=== PATIENT | female | born 1945 | race Caucasian/White ===

== ENCOUNTER → 2019-12-23 19:01 | Outpatient (BNVA) | payer MEDICARE, BC, SELFPAY | PROVIDERS: Family Provider Nurse Practitioner; PCP Nurse Practitioner; Visit Provider Nurse Practitioner Family | DX: Z20.828 Contact with and (suspected) exposure to other viral communicable diseases (principal) | CPT/HCPCS: 87635 ==

== ENCOUNTER 2021-06-22 14:35 | Outpatient (CLI) | payer MEDICARE, BC, SELFPAY ==
--- NOTE | 2021-06-22 15:00 | US_ITS ---
WS: [id number] Complete ABDOMINAL ULTRASOUND HISTORY: R10.11 - Right upper quadrant pain COMPARISON: None available. Liver: 15.4 cm in length. Coarsened echotexture throughout the liver from hepatic steatosis. No mass identified. No bile duct dilatation. Portal Vein: Normal hepatopetal flow with monophasic waveform. Gallbladder: Well distended gallbladder. There is a stone within the neck of the gallbladder. No humera cent cholecystic fluid. Suspect there may be additional stones in a redundant gallbladder. The stones measure at least 1.6 cm in diameter. Gallbladder wall thickness: 0.2 cm. Pancreas: Normal size and echogenicity. CBD: 0.5 cm. Right kidney: 11.3 cm x 4.4 cm x 5.8 cm. No mass, cortical thickening or hydronephrosis. Increased e chogenicity throughout the kidney. Left kidney: 11.2 cm x 4.3 cm x 6.0 cm. No mass, cortical thickening or hydronephrosis. Increased ec hogenicity throughout the kidney. Spleen: Normal size and echogenicity. Abdominal aorta and IVC are within normal limits. No ascites. US/US abdomen complete* [id number] IMPRESSION: 1. Several large stones within an elongated tortuous gallbladder neck. Patient is at risk for stone entrapment resulting in acute cholecystitis. Recommend shell rgical evaluation for cholecystectomy. At this time there is no acute cholecyst itis. 2. Mild bilateral chronic renal medical disease. 3. Hepatic steatosis. 4. No bile duct dilatation.
== END 2021-06-22 14:36 | disposition home or self-care (01) ==
PROVIDERS: PCP Electrodiagnostic Medicine; Visit Provider Nurse Practitioner Family
DX: R10.11 Right upper quadrant pain (principal); K76.0 Fatty (change of) liver, not elsewhere classified; N18.9 Chronic kidney disease, unspecified
CPT/HCPCS: 76700

== ENCOUNTER → 2021-07-03 08:33 | Outpatient (BNVA) | payer MEDICARE, BC, SELFPAY | PROVIDERS: PCP Electrodiagnostic Medicine; Referring Provider Nurse Practitioner Family; Visit Provider Surgery | DX: K80.20 Calculus of gallbladder without cholecystitis without obstruction (principal); K21.9 Gastro-esophageal reflux disease without esophagitis | CPT/HCPCS: 99204 ==

== ENCOUNTER 2021-07-12 07:26 | Day surgery (SDC) | payer MEDICARE, BC, SELFPAY ==
[2021-07-10 14:21] VITALS: BMI 35.8
[2021-07-12] VITALS (25 sets, daily range): BP systolic 136–190; BP diastolic 70–101; PULSE 48–75; RESP 12–27; TEMP 36.1–36.9; O2SAT 87–99
--- NOTE | 2021-07-12 08:00 | W.PM.OPSFHP ---
Same Day Surgery H&P Indication for Procedure/HPI DATE OF PROCEDURE: July 12, 2021 CHIEF COMPLAINT/INDICATIONFOR SURGICAL PROCEDURE: EGD with lap doris PREOP DIAGNOSIS: cholelithiasis gerd PLANNED PROCEDURE: Operation Date: 07/12/21 08:50 Proposed Procedures p Laparoscopic Cholecystectomy [id number]/k80.20/k21.9(Not Applicable) - Mando Barakat MD s EGD(Not Applicable) - Mando Barakat MD Medications/Allergies* Home Medications Medication Instructions Recorded Confirmed Type aspirin 81 mg tablet,delayed 81 mg PO DAILY 12/23/19 07/10/21 History release fenofibrate nanocrystallized 145 145 mg PO DAILY 12/23/19 07/10/21 History mg tablet omeprazole 20 mg capsule,delayed 20 mg PO DAILY 12/23/19 07/10/21 History release cholecalciferol (vitamin D3) 25 25 mcg PO DAILY 06/20/21 07/10/21 History mcg (1,000 unit) capsule coenzyme Q10 100 mg capsule 100 mg PO DAILY 06/20/21 07/10/21 History (CoQ-10) dexamethasone 1 mg tablet 1 mg PO DAILY 07/03/21 07/10/21 History Allergies/Adverse Reactions Allergy/AdvReac Type Severity Reaction Status Date / Time sulfamethoxazole Allergy Intermediate rash Verified 07/10/21 14:10 [From Bactrim] trimethoprim [From Bactrim] Allergy Intermediate rash Verified 07/10/21 14:10 Penicillins Allergy knots Verified 07/10/21 14:10 Pertinent History/Comorbid Conditions* Medical History (Updated 07/03/21 @ 09:05 by Mando Barakat MD) Cholelithiases GERD (gastroesophageal reflux disease) History of breast cancer Hyperlipidemia Polymyalgia rheumatica Surgical History (Updated 07/03/21 @ 09:05 by Mando Barakat MD) H/O esophagogastroduodenoscopy History of colonoscopy 2017 History of hysterectomy History of lumpectomy of right breast 2016 Social History Smoking and tobacco status: never smoked History of recent travel: No Agree to transfusion: Yes Pertinent Exam Findings alert, oriented x 3 and regular rate & rhythm Recommendations Surgery/Procedure today Coding Level of Care Code Acute Health Promotion Educator for Trang Alva
--- NOTE | 2021-07-12 08:16 | ECG_ITS ---
[facility] Test Date: 2021-07-12 Pat Name: Moriah Pineda Department: Room: Gender: Female [employer] Worker: : 1945 Requested By: Gregg Gomez Order Number: [id number] Mason MD: Cary Rodriguez M.D. Measurements Intervals Jackson Rate: 78 P: 34 VT: 165 QRS: 31 QRSD: 86 T: 32 QT: 371 QTc: 424 Interpretive Statements SINUS RHYTHM POSSIBLE ANTERIOR MYOCARDIAL INFARCTION , PROBABLY OLD [30 ms Q WAVE IN V3/V4, OR R < 0.2 mV IN V4] Compared to ECG 07/23/2016 19:05:50 Myocardial infarct finding now present Electronically Signed On 07-13-2021 6:12:51 CDT by Cary Rodriguez M.D. [id number]
[2021-07-12] MEDS: sodium chloride 0.9% 1,000 ML 30 ML IV (08:30)
[2021-07-12] MEDS: ciprofloxacin 400 MG/200 ML PREMIX 200 MG IV (09:21)
--- NOTE | 2021-07-12 09:51 | P.ANESASSM_ITS ---
Pre-Anesthetic Assessment Height/Weight: Height 1.57 m Weight 88.904 kg Temp Pulse Resp BP Pulse Ox 98.2 F 48 L 18 174/97 95 07/12/21 08:20 07/12/21 08:20 07/12/21 08:20 07/12/21 08:20 07/12/21 08:20 Preop Diagnosis: Cholelithiasis Operation Date: 07/12/21 08:50 Proposed Procedures p Laparoscopic Cholecystectomy [id number]/k80.20/k21.9(Not Applicable) - Mando Barakat MD s EGD(Not Applicable) - Mando Barakat MD Familial anesthetic complications: None Was Beta Jordon taken within 24 hours: N/A Was Clonidine taken within 24 hours: N/A Last intake: Intake Last Liquid Date 07/11/21 Last Liquid Time 19:00 Last Solid Date 07/11/21 Last Solid Time 19:00 Social No alcohol and No tobacco Exam alert, oriented x 3, clear to auscultation bilaterally and regular rate & rhythm Airway Submandibular: within normal limits Cervical ROM: within normal limits Mallampati: Class II Dentition: full GI Gastroesophageal Reflux Disease Anesthetic Plan ASA status: 2 Anesthesia: General Medications/Allergies Home Medications Medication Instructions Recorded Confirmed Last Taken Type aspirin 81 mg tablet,delayed 81 mg PO DAILY 12/23/19 07/12/21 07/11/21 History release fenofibrate nanocrystallized 145 145 mg PO DAILY 12/23/19 07/12/21 07/10/21 History mg tablet omeprazole 20 mg capsule,delayed 20 mg PO DAILY 12/23/19 07/12/21 07/11/21 History release cholecalciferol (vitamin D3) 25 25 mcg PO DAILY 06/20/21 07/12/21 07/11/21 History mcg (1,000 unit) capsule coenzyme Q10 100 mg capsule 100 mg PO DAILY 06/20/21 07/12/21 07/11/21 History (CoQ-10) dexamethasone 1 mg tablet 1 mg PO DAILY 07/03/21 07/12/21 07/10/21 History Allergies Allergy/AdvReac Type Severity Reaction Status Date / Time sulfamethoxazole Allergy Intermediate rash Verified 07/10/21 14:10 [From Bactrim] trimethoprim [From Bactrim] Allergy Intermediate rash Verified 07/10/21 14:10 Penicillins Allergy knots Verified 07/10/21 14:10 [facility] Anesthesia Medical History Cholelithiases GERD (gastroesophageal reflux disease) History of breast cancer Hyperlipidemia Polymyalgia rheumatica Surgical History H/O esophagogastroduodenoscopy History of colonoscopy 2017 History of hysterectomy History of lumpectomy of right breast 2016 Social History Smoking and tobacco status: never smoked History of recent travel: No Agree to transfusion: Yes Data Anesthesia Cardiac Studies: No Data to Display
--- NOTE | 2021-07-12 10:34 | PM.OP ---
Operative Report Date of procedure: July 12, 2021 Pre-op diagnosis: 1. GERD 2. Cholelithiasis Post-op diagnosis: 1. Nonerosive gastritis in the antrum 2. Small hiatal hernia 3. Cholelithiasis Procedure done: 1. Laparoscopic cholecystectomy 2. Esophagogastroduodenoscopy with biopsy Specimens removed/disposition: 1. Antral biopsy for H. pylori 2. Gallbladder Surgeon: Mando Barakat Anesthesia: General Condition: stable Disposition: PACU Procedure: The patient was taken to the operating room and intubated under general anesthesia after IV antibiotic had been administered. A bite block was placed and A gastroscope was introduced and advanced up to second portion of the duodenum and slowly withdrawn. Duodenum second portion: Normal Duodenal bulb: Normal Stomach Fundus: Normal, small hiatal hernia on retroflexion body: Normal Antrum: Mild nonerosive gastritis, biopsies obtained with cold biopsy forceps Pylorus: Normal Esophagus GE junction: Normal at 37 cm Rest of esophagus: Normal The abdomen was prepped and draped in a sterile manner. Using a #15 blade, a 1 centimeter infraumbilical curvilinear incision was made and using an open Jillian technique the peritoneal cavity was entered. A 10 millimeter port was placed and 15 millimeters of pneumoperitoneum was created. A 10 millimeter, 30 degrees scope was then introduced. Three 5 millimeter ports were placed in the epigastric, midclavicular and the anterior axillary line two fingerbreadths below the costal margin on the right side under the direct visualization. Ratcheted forceps were introduced into the lateral most port and was used to retract the fundus of the gallbladder cephalad and using forceps the infundibulum of the gallbladder was retracted laterally. The stomach and the omentum was adherent to the body and infundibulum of the gallbladder and this was taken down using electrocautery. There. Ago progressively using L-hook cautery the peritoneum overlying the Calot's triangle was opened medially and laterally until the cystic duct and the cystic artery were skeletonized. Dissection was carried along the body of the gallbladder and after ensuring critical view of safety, 4 clips applied on the cystic duct and 3 clips applied on the cystic artery and cut leaving, 3 clips on the remaining portion of the duct and 2 clips on the remaining portion of the artery. The rest of the gallbladder was dissected off the liver using L-hook cautery. There was no bleeding or bile leaking noted from the gallbladder fossa and the clips appeared to be in place. An EndoCatch bag was introduced to remove the gallbladder. All the ports were removed under direct visualization and there was no bleeding noted from the port sites. The fascia of the umbilicus was closed using [id number] 0 Vicryl sutures and the subcutaneous tissue was approximated using 3-0 Vicryl sutures. The skin at all four ports were closed using 4-0 Monocryl and Dermabond. A total of 10 millimeters of 0.5% Marcaine was infiltrated around the port sites. The patient was extubated and transferred to recovery room in stable condition
--- NOTE | 2021-07-12 10:45 | SUR.PHASEI ---
1035 PT CARE ASSUMED BY Enoch SUERO RN. PT AWAKES TO VOICE, GOOD RESP EFFORT NOTED IV TO LT HAND # 20 WITH NS 600ML UP AT KVO RATE PER GRAVITY. ID BRACELET TO RT WRIST , PT ID'D WITH 2 IDENTIFIERS ABDOMEN LARGE SOFT WITH 4 SITE TO ABDOMEN WITH SKIN GLUE. BILAT SCDS ON.
[2021-07-12] MEDS: fentaNYL 50 mcg/mL INJ 2mL IVP ×2 (10:59→11:08)
[2021-07-12] MEDS: HYDROmorphone 1 mg/mL INJ 1 mL 0.5 MG IVP (11:29)
[2021-07-12] MEDS: midazolam 1 mg/mL INJ 2 mL IVP (11:29)
[2021-07-12] MEDS: ondansetron 2 mg/ML SDV 2 mL 4 MG IVP ×2 (11:36→12:25)
--- NOTE | 2021-07-12 12:03 | SUR.PHASEI ---
1059 PT COMPLAINS OF ABDOMENAL PAIN (TENSE) PT SATS DOWN TO 88 ON RA TRIAL, PT PLACED ON 3LNC SATS QUICKLY UP TO 94% PT APPEARS TENSE AND STATES ( I FEEL TENSE ALL OVER) BP UP SEE PAIN MEDS GIVEN DR MELVIN AT BEDSIDE.
--- NOTE | 2021-07-12 12:55 | SUR.PHASEI ---
1155 PT AWAKE ALERT STATES ( I FEEL MUCH MORE RELAXED) PT ASKING FOR SPRITE TO SIP ON, VSS ABD SOFT ROUNDED, HOB AT 40 DEGREES, BP MUCH BETTER NOW IV PATENT , PT TO OPS HANDOFF AT BEDSIDE TO JEOVANNY TAMEZ. FAMILY UPDATED EARLIER X 2 TIMES.
--- NOTE | 2021-07-12 14:57 | ANE.PACU2 ---
Inpatient post-anesthesia follow up: Airway intact: Yes Vital signs: Temperature 97.9 F Pulse Rate 70 Respiratory Rate 16 Blood Pressure 138/88 Pulse Oximetry 93 Oxygen Delivery Me thod Room Air Oxygen Flow Rate 3 Fraction of Inspir ed Oxygen Hydration adequate: Yes Nausea and vomiting: Yes Pain level: 4 Mental status: Baseline
== END 2021-07-12 14:30 | disposition home or self-care (01) ==
PROVIDERS: PCP Electrodiagnostic Medicine; Visit Provider Surgery
PROC: 0FT44ZZ Resection of Gallbladder, Percutaneous Endoscopic Approach (ICD-10-PCS; CPT 47562; principal; 2021-07-12 08:50)
PROC: 0DJ08ZZ Inspection of Upper Intestinal Tract, Via Natural or Artificial Opening Endoscopic (ICD-10-PCS; CPT 43235; 2021-07-12 08:50)
DX: K80.10 Calculus of gallbladder with chronic cholecystitis without obstruction (principal); K29.70 Gastritis, unspecified, without bleeding; K21.9 Gastro-esophageal reflux disease without esophagitis; K44.9 Diaphragmatic hernia without obstruction or gangrene; Z79.82 Long term (current) use of aspirin; E78.5 Hyperlipidemia, unspecified; Z85.3 Personal history of malignant neoplasm of breast
CPT/HCPCS: 43239; 47562; 88304; 88305; 93005; J0744; J1100; J1170; J2250; J2405; J2704; J2710; J3010; J3490; J7030

== ENCOUNTER → 2021-07-31 13:10 | Outpatient (BNVA) | payer MEDICARE, BC, SELFPAY | PROVIDERS: PCP Electrodiagnostic Medicine; Visit Provider Surgery | DX: Z98.890 Other specified postprocedural states (principal); Z90.49 Acquired absence of other specified parts of digestive tract; K29.70 Gastritis, unspecified, without bleeding; B96.81 Helicobacter pylori [H. pylori] as the cause of diseases classified elsewhere ==

== ENCOUNTER → 2021-11-05 09:44 | Outpatient (BNVA) | payer MEDICARE, BC, SELFPAY | PROVIDERS: PCP Electrodiagnostic Medicine; Visit Provider Nurse Practitioner | DX: R53.83 Other fatigue (principal) | CPT/HCPCS: 80053; 84443; 85025 ==

== ENCOUNTER → 2022-01-09 08:53 | Outpatient (BNVA) | payer MEDICARE, BC, SELFPAY | PROVIDERS: PCP Nurse Practitioner; Visit Provider Internal Medicine Rheumatology | DX: M34.9 Systemic sclerosis, unspecified (principal); Z79.899 Other long term (current) drug therapy; R29.898 Other symptoms and signs involving the musculoskeletal system; M19.041 Primary osteoarthritis, right hand; M19.042 Primary osteoarthritis, left hand; M70.61 Trochanteric bursitis, right hip; Y93.9 Activity, unspecified | CPT/HCPCS: 36415; 82085; 82550; 85651; 86140; 99204 ==

== ENCOUNTER 2022-02-28 11:13 | Outpatient (CLI) | payer MEDICARE, BC, SELFPAY | END 2022-02-28 11:14 | disposition home or self-care (01) | LOC: RT 11:14 | PROVIDERS: PCP Nurse Practitioner; Visit Provider Internal Medicine Rheumatology | DX: M34.9 Systemic sclerosis, unspecified (principal) | CPT/HCPCS: 94010; 94726; 94729 ==

== ENCOUNTER → 2022-03-26 13:34 | Outpatient (BNVA) | payer MEDICARE, BC, SELFPAY | PROVIDERS: PCP Nurse Practitioner; Visit Provider Internal Medicine Rheumatology | DX: M34.9 Systemic sclerosis, unspecified (principal); Z79.899 Other long term (current) drug therapy; R29.898 Other symptoms and signs involving the musculoskeletal system; M19.041 Primary osteoarthritis, right hand; M19.042 Primary osteoarthritis, left hand; K22.89 Other specified disease of esophagus; R06.02 Shortness of breath; Z87.891 Personal history of nicotine dependence | CPT/HCPCS: 36415; 80076; 82565; 85025; 86140; 99214 ==

== ENCOUNTER 2022-04-20 09:00 | Outpatient (CLI) | payer MEDICARE, BC, SELFPAY ==
--- NOTE | 2022-04-20 | PETR_ITS ---
PROCEDURE INFORMATION: Exam: PET/CT Whole Body Exam date and time: 04/20/2022 10:48 AM Age: 77 years old Clinical indication: Condition or disease; Follow-up oncological assessment; Condition/disease: Malignant neoplasm of breast, enlarged lymph nodes; Additional info: HX of neoplasm of breast LABS AND CLINICAL REPORTS: Glucose: 97 mg/dl Treatment strategy for malignancy (PET staging): Restaging (PS) TECHNIQUE: Imaging protocol: Following at least four-hour fasting and following the injection of F-18-FDG, low dose CT images were obtained. Then, PET images were obtained. Attenuation corrected images were constructed using the CT scan. Fused images of PET and CT were reviewed. The standardized uptake values (SUV) reported below are maximum values within a region of interest, expressed in gm/ml. Exam includes the whole body. Radiopharmaceutical: 10.33 mCi F-18 FDG (Fluorodeoxyglucose), IV. Time of imaging post radiopharmaceutical administration: 1 hour Injection site: Not specified COMPARISON: Mammogram 03/27/2022, CT chest 09/26/2021 FINDINGS: Brain: Visualized brain has normal physiologic uptake. Pharynx: No abnormal uptake. Larynx: No abnormal uptake. Lungs, pleura and trachea: No abnormal uptake. Heart: Normal physiologic uptake. Mediastinal space: The esophagus is moderately distended with gas without wall thickening. A small amount of fluid layers in the distal esophagus. Moderate hiatal hernia. Liver: No abnormal uptake. Gallbladder and bile ducts: No abnormal uptake. Cholecystectomy clips are present. Pancreas: No abnormal uptake. Spleen: No abnormal uptake. Adrenal glands: No abnormal uptake. Kidneys and ureters: Normal physiologic uptake. Stomach and bowel: No abnormal uptake. There are scattered colonic diverticula. Reproductive: The uterus is not identified, likely surgically absent. Vasculature: No abnormal uptake. Diffuse atherosclerotic changes are noted. Lymph nodes: A right supraclavicular lymph node on series 3, image 50 measures 1.9 x 1.2 cm, SUV max 3.0. Mildly prominent mediastinal lymph nodes are noted, the largest of which is present in the precarinal space measuring 1.9 x 1.3 cm on series 3, image 67, SUV max 3.0. A more superiorly located right paratracheal lymph node measures 9 mm on series 3, image 59 without elevated uptake. A non radiotracer avid 7 mm right axillary lymph node is noted on series 3, image 69. Bones/joints: Uptake in the region of the right anterior cruciate ligament is noted, SUV max 3.9, likely inflammatory. Non radiotracer avid benign-appearing mild cystic and sclerotic density in the medial talar dome is present. Degenerative appearing uptake is identified in the region of the right C2-C3 facet joint, SUV max 3.9. Soft tissues: Postoperative changes in the right breast are noted without elevated uptake. METRICS: Mediastinal blood pool: SUV max 2.9 PET/PET WB melanoma SUBSEQ [id number] IMPRESSION: 1. Mildly prominent right supraclavicular mediastinal lymph nodes are noted, the largest of which demonstrate mild activity similar to minimally increased compared with mediastinal blood pool activity.This may be reactive, secondary to infectious or inflammatory involvement. Neoplastic involvement cannot be entirely excluded. 2. A small amount of fluid layers in the esophagus which can be associated with gastroesophageal reflux. This is associated with a moderate hiatal hernia. 3. Colonic diverticulosis. 4. Additional nonurgent findings as detailed above.
== END 2022-04-20 09:01 | disposition home or self-care (01) ==
LOC: RAD 04-22 05:49
PROVIDERS: PCP Nurse Practitioner; Visit Provider Nurse Practitioner
DX: R59.0 Localized enlarged lymph nodes (principal); Z85.3 Personal history of malignant neoplasm of breast; K57.90 Diverticulosis of intestine, part unspecified, without perforation or abscess without bleeding
CPT/HCPCS: 78816; A9552

== ENCOUNTER → 2022-07-03 13:06 | Outpatient (BNVA) | payer MEDICARE, BC, SELFPAY | PROVIDERS: PCP Nurse Practitioner; Visit Provider Internal Medicine Rheumatology | DX: M34.9 Systemic sclerosis, unspecified (principal); R29.898 Other symptoms and signs involving the musculoskeletal system; M19.041 Primary osteoarthritis, right hand; M19.042 Primary osteoarthritis, left hand; K22.89 Other specified disease of esophagus | CPT/HCPCS: 99214 ==

== ENCOUNTER → 2022-10-09 12:52 | Outpatient (BNVA) | payer MEDICARE, BC, SELFPAY | PROVIDERS: PCP Internal Medicine; Visit Provider Internal Medicine Rheumatology | DX: M34.9 Systemic sclerosis, unspecified (principal); R29.898 Other symptoms and signs involving the musculoskeletal system; M19.041 Primary osteoarthritis, right hand; M19.042 Primary osteoarthritis, left hand; K22.89 Other specified disease of esophagus | CPT/HCPCS: 99214 ==

== ENCOUNTER → 2022-11-19 14:12 | Outpatient (BNVA) | payer MEDICARE, BC, SELFPAY | PROVIDERS: PCP Nurse Practitioner; Visit Provider Nurse Practitioner Family | DX: M34.89 Other systemic sclerosis (principal); L82.0 Inflamed seborrheic keratosis; L85.3 Xerosis cutis; L57.8 Other skin changes due to chronic exposure to nonionizing radiation; L57.0 Actinic keratosis; L91.8 Other hypertrophic disorders of the skin; M79.675 Pain in left toe(s); M79.672 Pain in left foot; L81.4 Other melanin hyperpigmentation; D22.5 Melanocytic nevi of trunk | CPT/HCPCS: 11200; 17000; 17003; 17110; 99213 ==

== ENCOUNTER → 2023-01-30 12:58 | Outpatient (BNVA) | payer MEDICARE, BC, SELFPAY | PROVIDERS: PCP Nurse Practitioner; Visit Provider Internal Medicine Rheumatology | DX: M34.9 Systemic sclerosis, unspecified (principal); R29.898 Other symptoms and signs involving the musculoskeletal system; M19.041 Primary osteoarthritis, right hand; M19.042 Primary osteoarthritis, left hand; K22.89 Other specified disease of esophagus | CPT/HCPCS: 99214 ==

== ENCOUNTER → 2023-08-14 11:32 | Outpatient (BNVA) | payer MEDICARE, BC, SELFPAY | PROVIDERS: PCP Nurse Practitioner Family; Visit Provider Internal Medicine Rheumatology | DX: M34.9 Systemic sclerosis, unspecified (principal); R29.898 Other symptoms and signs involving the musculoskeletal system; M19.041 Primary osteoarthritis, right hand; M19.042 Primary osteoarthritis, left hand; K22.89 Other specified disease of esophagus | CPT/HCPCS: 99214 ==

== ENCOUNTER → 2023-12-23 08:48 | Outpatient (BNVA) | payer MEDICARE, BC, SELFPAY | PROVIDERS: PCP Nurse Practitioner Family; Visit Provider Nurse Practitioner Family | DX: L57.0 Actinic keratosis (principal); I78.8 Other diseases of capillaries; S00.30XA Unspecified superficial injury of nose, initial encounter; X58.XXXA Exposure to other specified factors, initial encounter; L82.1 Other seborrheic keratosis; L57.8 Other skin changes due to chronic exposure to nonionizing radiation; L81.4 Other melanin hyperpigmentation; D18.01 Hemangioma of skin and subcutaneous tissue; L81.8 Other specified disorders of pigmentation | CPT/HCPCS: 17000; 99213 ==

== ENCOUNTER → 2024-01-27 11:10 | Outpatient (BNVA) | payer MEDICARE, BC, SELFPAY | PROVIDERS: PCP Nurse Practitioner Family; Visit Provider Nurse Practitioner Family | DX: I78.8 Other diseases of capillaries (principal); S00.30XA Unspecified superficial injury of nose, initial encounter; X58.XXXA Exposure to other specified factors, initial encounter; L57.8 Other skin changes due to chronic exposure to nonionizing radiation; L81.4 Other melanin hyperpigmentation; L81.8 Other specified disorders of pigmentation; L57.0 Actinic keratosis; L71.8 Other rosacea | CPT/HCPCS: 17000; 99214 ==

== ENCOUNTER → 2024-01-29 11:03 | Outpatient (BNVA) | payer MEDICARE, BC, SELFPAY | PROVIDERS: PCP Nurse Practitioner Family; Visit Provider Internal Medicine Rheumatology | DX: R29.898 Other symptoms and signs involving the musculoskeletal system; M19.041 Primary osteoarthritis, right hand; M19.042 Primary osteoarthritis, left hand; K22.89 Other specified disease of esophagus; M34.0 Progressive systemic sclerosis; Z85.3 Personal history of malignant neoplasm of breast | CPT/HCPCS: 99214 ==

== ENCOUNTER → 2024-06-07 11:31 | Outpatient (BNVA) | payer MEDICARE, BC, SELFPAY | PROVIDERS: PCP Nurse Practitioner Family; Visit Provider Nurse Practitioner Family | DX: I78.8 Other diseases of capillaries (principal); L57.8 Other skin changes due to chronic exposure to nonionizing radiation; L81.4 Other melanin hyperpigmentation; L71.8 Other rosacea; D22.4 Melanocytic nevi of scalp and neck; L82.0 Inflamed seborrheic keratosis; Z78.9 Other specified health status; R20.8 Other disturbances of skin sensation; L29.89 Other pruritus; R58 Hemorrhage, not elsewhere classified; L53.8 Other specified erythematous conditions; L57.0 Actinic keratosis | CPT/HCPCS: 17000; 17110; 99214 ==

== ENCOUNTER → 2024-07-29 10:52 | Outpatient (BNVA) | payer MEDICARE, BC, SELFPAY | PROVIDERS: PCP Nurse Practitioner Family; Visit Provider Internal Medicine Rheumatology | DX: M34.9 Systemic sclerosis, unspecified (principal); R29.898 Other symptoms and signs involving the musculoskeletal system; M19.041 Primary osteoarthritis, right hand; M19.042 Primary osteoarthritis, left hand; K22.89 Other specified disease of esophagus | CPT/HCPCS: 99214 ==

== ENCOUNTER 2024-11-22 05:00 | Outpatient (RCR) | payer MEDICARE, BC, SELFPAY | END 2024-12-21 23:59 | disposition home or self-care (01) | LOC: WPT 05:00 | PROVIDERS: Visit Provider Nurse Practitioner Family | DX: I26.99 Other pulmonary embolism without acute cor pulmonale (principal); J18.9 Pneumonia, unspecified organism; R29.898 Other symptoms and signs involving the musculoskeletal system | CPT/HCPCS: 97110; 97112; 97116; 97161; 97530 ==

== ENCOUNTER 2025-01-19 09:00 | Outpatient (RCR) | payer MEDICARE, BC, SELFPAY | END 2025-01-21 23:59 | disposition home or self-care (01) | LOC: WPT 09:00 | PROVIDERS: Visit Provider Nurse Practitioner Family | DX: I26.99 Other pulmonary embolism without acute cor pulmonale (principal); J18.9 Pneumonia, unspecified organism; R29.898 Other symptoms and signs involving the musculoskeletal system | CPT/HCPCS: 97110; 97112; 97116; 97530 ==

== ENCOUNTER 2025-02-14 13:19 | Outpatient (RCR) | payer MEDICARE, BC, SELFPAY | END 2025-02-20 23:59 | disposition home or self-care (01) | LOC: WPT 13:19 | PROVIDERS: Visit Provider Nurse Practitioner Family | DX: I26.99 Other pulmonary embolism without acute cor pulmonale (principal); J18.9 Pneumonia, unspecified organism | CPT/HCPCS: 97110; 97112; 97116; 97530 ==

== ENCOUNTER 2025-02-21 13:03 | Outpatient (RCR) | payer MEDICARE, BC, SELFPAY | END 2025-02-22 08:28 | disposition home or self-care (01) | LOC: WPT 13:03 | PROVIDERS: Visit Provider Nurse Practitioner Family | DX: I26.99 Other pulmonary embolism without acute cor pulmonale (principal); J18.9 Pneumonia, unspecified organism; R29.898 Other symptoms and signs involving the musculoskeletal system | CPT/HCPCS: 97110; 97112; 97530 ==

== ENCOUNTER → 2025-03-22 11:02 | Outpatient (BNVA) | payer MEDICARE, BC, SELFPAY | PROVIDERS: Visit Provider Internal Medicine Rheumatology | DX: M34.9 Systemic sclerosis, unspecified (principal); R29.898 Other symptoms and signs involving the musculoskeletal system; M19.041 Primary osteoarthritis, right hand; M19.042 Primary osteoarthritis, left hand; K22.89 Other specified disease of esophagus | CPT/HCPCS: 99214 ==